=== PATIENT | male | born 1965 | race Caucasian/White ===

== ENCOUNTER 2017-01-08 11:09 | Emergency (ER) | payer OTHER, BC ==
[2017-01-08 11:13] VITALS: BP 139/91; PULSE 78; TEMP 98.4; BMI 33.9
[2017-01-08] MEDS ORDERED: IBUPROFEN 400 MG TABLET (FP) PO ONE ×2 (11:34→11:36)
--- NOTE | 2017-01-08 11:40 | PDOC ---
History of Present Illness - General Chief Complaint: Bite Stated Complaint: BEE STING Time Seen by Provider: 01/08/17 11:21 History Source: Patient Exam Limitations: No Limitations - History of Present Illness Initial Comments: 01/08/17 11:35 [employer] stung by bee today; left wrist Timing/Duration: reports: just prior to arrival Severity: Yes: mild Location: reports: extremities Respiratory Risk Factors: reports: insect bite Past History - Past Medical History Allergies/Adverse Reactions: Allergies Allergy/AdvReac Type Severity Reaction Status Date / Time honey Allergy Severe CYANOSIS Verified 01/08/17 11:13 TO LIPS, FINGER venom-honey bee Allergy Intermediate ITCHY Verified 01/08/17 11:13 [bee venom (honey bee)] EYES, WHEEZING Home Medications: Ambulatory Orders Mesalamine [Asacol HD -] 800 mg PO TID 11/18/13 GI Disorders: Yes (CROHNS DISEASE) - Surgical History Abdominal Surgery: Yes (HERNIA) GI Surgery: Yes (RECTUM) - Psycho/Social/Smoking Cessation Hx Anxiety: No Suicidal Ideation: No Smoking Status: No Smoking History: Never smoked Number of Cigarettes Smoked Daily: 0 Hx Alcohol Use: No Drug/Substance Use Hx: No Substance Use Type: None Review of Systems - Review of Systems Constitutional: No: Chills, Fever HEENTM: No: Nose Congestion, Tinnitus, Throat Swelling, Difficulty Swallowing, Mouth Swelling Respiratory: No: Cough, Shortness of Breath, Stridor Cardiac (ROS): No: Symptoms Reported Integumentary: Yes: Erythema *Physical Exam - Vital Signs Last Vital Signs Temp Pulse Resp BP Pulse Ox 98.4 F 78 20 139/91 95 01/08/17 11:10 01/08/17 11:10 01/08/17 11:10 01/08/17 11:10 01/08/17 11:10 - Physical Exam General Appearance: Yes: Appropriately Dressed HEENT: positive: TMs Normal, Pharynx Normal, Other (mouth clear) Neck: negative: Tender, Stridor Respiratory/Chest: positive: Lungs Clear, Normal Breath Sounds. negative: Respiratory Distress, Decreased Breath Sounds, Rhonchi, Wheezing Musculoskeletal: positive: Other (dorsal surface; small red patch; no stinger) Medical Decision Making - Medical Decision Making 01/08/17 11:37 no angioedema; motrin given for headache; benadryl for itch and redness *DC/Admit/Observation/Transfer Diagnosis at time of Disposition: Bee sting Qualifiers: Encounter type: initial encounter Injury intent: undetermined intent Qualified Code(s): T63.444A - Toxic effect of venom of bees, undetermined, initial encounter - Discharge Dispostion Disposition: HOME Condition at time of disposition: Stable Admit: No - Patient Instructions Additional Instructions: benadryl for itch; 50 mg; ice area; no driving after Benadryl - Post Discharge Activity Work/School Note: Back to Work
== END 2017-01-08 11:49 | disposition home or self-care (01) ==
LOC: JERFT 11:09
PROC: 3E023GC Introduction of Other Therapeutic Substance into Muscle, Percutaneous Approach (ICD-10-PCS; principal; 2017-01-08)
DX: T63.441A Toxic effect of venom of bees, accidental (unintentional), initial encounter (principal); L53.0 Toxic erythema; Y92.89 Other specified places as the place of occurrence of the external cause
CPT/HCPCS: 99281-25

== ENCOUNTER 2017-02-07 09:15 | Emergency (ER) | payer BC, OTHER ==
[2017-02-07 09:22] VITALS: PULSE 67; TEMP 98.1; BMI 33.9
--- NOTE | 2017-02-07 10:36 | PDOC ---
History of Present Illness - General Chief Complaint: Pain Stated Complaint: ABD PAIN Time Seen by Provider: 02/07/17 09:37 History Source: Patient Exam Limitations: No Limitations - History of Present Illness Travel History: No Initial Comments: 02/07/17 10:33 51-year-old male presents to the ED with complaints of sudden onset of periumbilical pain while lifting a heavy item at work. Patient states felt a sharp burning sensation and states abdomen felt they but denies radiation of pain to his back, chest or lower abdomen. Patient states has had a hernia repaired to his left inguinal in the past and denies any abdominal surgery otherwise. Patient has no other complaints at this time. Timing/Duration: reports: constant Quality: reports: moderate, burning, sharpness Abdominal Pain Onset Location: reports: periumbilical Pain Radiation: reports: no radiation Activities at Onset: reports: none Aggravating Factors: improves with: Movement Alleviating Factors: improves with: None Past History - Travel Traveled outside of the country in the last 30 days: No Close contact w/someone who was outside of country & ill: No - Past Medical History Allergies/Adverse Reactions: Allergies Allergy/AdvReac Type Severity Reaction Status Date / Time honey Allergy Severe CYANOSIS Verified 02/07/17 09:19 TO LIPS, FINGER venom-honey bee Allergy Intermediate ITCHY Verified 02/07/17 09:19 [bee venom (honey bee)] EYES, WHEEZING Home Medications: Ambulatory Orders Mesalamine [Asacol HD -] 800 mg PO DAILY 11/18/13 Ranitidine HCl [Zantac] 150 mg PO BID 02/07/17 GI Disorders: Yes (CROHNS DISEASE) - Surgical History Abdominal Surgery: Yes (HERNIA) GI Surgery: Yes (RECTUM) - Suicide/Smoking/Psychosocial Hx Smoking Status: No Smoking History: Never smoked Number of Cigarettes Smoked Daily: 0 Information on smoking cessation initiated: No Hx Alcohol Use: No Drug/Substance Use Hx: No Substance Use Type: None Patient Lives Alone: No Lives with/in: spouse/SO Review of Systems - Review of Systems Able to Perform ROS?: No Is the patient limited Frisian proficient: No Constitutional: No: Symptoms Reported ABD/GI: Yes: Abdominal Distended, Other : No: Symptoms Reported Musculoskeletal: No: Symptoms Reported Integumentary: No: Symptoms Reported Neurological: No: Symptoms reported *Physical Exam - Vital Signs Last Vital Signs Temp Pulse Resp BP Pulse Ox 98.1 F 67 18 154/94 100 02/07/17 09:19 02/07/17 09:19 02/07/17 09:19 02/07/17 09:19 02/07/17 09:19 - Physical Exam General Appearance: Yes: Nourished, Appropriately Dressed. No: Apparent Distress HEENT: negative: Pale Conjunctivae Respiratory/Chest: positive: Lungs Clear, Normal Breath Sounds. negative: Respiratory Distress, Accessory Muscle Use Cardiovascular: positive: Regular Rhythm, Regular Rate. negative: Murmur Gastrointestinal/Abdominal: positive: Soft, Tenderness (periumbilical), Hernia ( small 1-2 cm reducible umbilical hernia. no signs of incarceration. Surrounding skin intact) Integumentary: positive: Normal Color, Warm, Moist Neurologic: positive: Motor Strength 5/5 ( ambulatory) ED Treatment Course - LABORATORY CBC & Chemistry Diagram: 02/07/17 10:26 02/07/17 10:26 Medical Decision Making - Medical Decision Making 02/07/17 10:36 Patient with complaints of periumbilical pain after lifting an item. Patient with small reproducible umbilical hernia. Patient ordered for CT of the abdomen for accurate size and depth. Patient otherwise comfortable. 02/07/17 11:38 Laboratory Tests 02/07/17 02/07/17 10:26 10:26 WBC 8.5 Hgb 15.2 Hct 44.4 Plt Count 145 Sodium 140 Potassium 3.6 Chloride 105 Carbon Dioxide 28 Anion Gap 7 L BUN 14 Creatinine 1.0 Creat Clearance w eGFR > 60 Random Glucose 88 D Calcium 8.5 Total Bilirubin 0.9 AST 23 D ALT 26 D Alkaline Phosphatase 69 Total Protein 7.0 Albumin 3.8 02/07/17 14:33 CT shows a small fat-containing umbilical hernia with mild fat stranding within this hernia sac which may be related to attempts of reduction rather than fat necrosis. He also small bilateral fat-containing inguinal hernias right greater than left despite having left inguinal hernia repair in the past. Patient given referral to Dr. Robles for surgical consult. *DC/Admit/Observation/Transfer Diagnosis at time of Disposition: Umbilical hernia Qualifiers: Obstruction and gangrene presence: without obstruction or gangrene Qualified Code(s): K42.9 - Umbilical hernia without obstruction or gangrene; K42.9 - Umbilical hernia without obstruction or gangrene - Discharge Dispostion Disposition: HOME Condition at time of disposition: Good - Referrals Referrals: Reese Robles MD [Staff Physician] - - Patient Instructions Printed Discharge Instructions: Abdominal Hernia Additional Instructions: Please follow-up with referred surgeon as discussed. Please take copy of your CAT scan report with you.
[2017-02-07 10:40] LABS: BASOPHIL 0.3 % (0-2.0); EOSINOPHIL 1.3 % (0-4.5); MCH 28.6 pg (25.7-33.7); MCHC 34.3 g/dl (32.0-35.9); MEAN CELL VOLUME 83.4 fl (80-96); MEAN PLT VOLUME 7.7 fl (7.5-11.1); NEUTROPHILS 71.2 % (42.8-82.8); PLATELET COUNT 145 K/MM3 (134-434); RDW 13.7 % (11.9-15.9); WHITE BLOOD COUNT 8.5 K/mm3 (4.0-10.0)
[2017-02-07 11:04] LABS: ALBUMIN 3.8 g/dl (3.4-5.0); ALK PHOS 69 U/L (45-117); ANION GAP 7 (8-16); BILIRUBIN,TOTAL 0.9 mg/dL (0.2-1.0); CALCIUM 8.5 mg/dL (8.5-10.1); CO2 28 mmol/L (21-32); GLUCOSE,RANDOM 88 mg/dL (74-106); SGOT/AST 23 U/L (15-37); SGPT/ALT 26 U/L (12-78)
[2017-02-07 15:20] VITALS: BP 150/72
== END 2017-02-07 15:00 | disposition home or self-care (01) ==
LOC: JER 09:15
DX: K42.9 Umbilical hernia without obstruction or gangrene (principal); K50.90 Crohn's disease, unspecified, without complications
CPT/HCPCS: 36415; 74177-TC; 80053; 85025; 99283-25

== ENCOUNTER 2018-04-14 09:01 | Emergency (ER) | payer OTHER, BC ==
[2018-04-14 09:26] VITALS: BP 122/91; PULSE 74; TEMP 97.8; BMI 33.9
--- NOTE | 2018-04-14 11:04 | PDOC ---
History of Present Illness - General Chief Complaint: Injury Stated Complaint: PAIN,SWELLING,RT FT Time Seen by Provider: 04/14/18 09:41 History Source: Patient Exam Limitations: No Limitations - History of Present Illness Initial Comments: 04/14/18 11:17 Pt is a 52 y/o M who presents to the ED with R foot pain. Pt states he stepped on a very sharp rock while at work last week. He states that the ball of his foot is swollen and it hurts to put weight on the foot. Denies numbness and tingling to the extremities, weakness to the foot, fever. Past History - Travel Traveled outside of the country in the last 30 days: No Close contact w/someone who was outside of country & ill: No - Past Medical History Allergies/Adverse Reactions: Allergies Allergy/AdvReac Type Severity Reaction Status Date / Time honey Allergy Severe CYANOSIS Verified 04/14/18 09:20 TO LIPS, FINGER venom-honey bee Allergy Intermediate ITCHY Verified 04/14/18 09:20 [bee venom (honey bee)] EYES, WHEEZING Home Medications: Ambulatory Orders Mesalamine [Asacol HD -] 800 mg PO DAILY 11/18/13 Ranitidine HCl [Zantac] 150 mg PO BID 02/07/17 Acetaminophen [Tylenol -] 500 mg PO Q6H #100 tablet 04/14/18 COPD: No GI Disorders: Yes (CROHNS DISEASE) - Surgical History Abdominal Surgery: Yes (HERNIA) GI Surgery: Yes (RECTUM) - Suicide/Smoking/Psychosocial Hx Smoking Status: No Smoking History: Never smoked Number of Cigarettes Smoked Daily: 0 Hx Alcohol Use: No Drug/Substance Use Hx: No Substance Use Type: None Review of Systems - Review of Systems Able to Perform ROS?: Yes Comments:: 04/14/18 11:02 CONSTITUTIONAL: Absent: fever, chills, diaphoresis, generalized weakness, malaise, loss of appetite HEENT: Absent: rhinorrhea, nasal congestion, throat pain, throat swelling, difficulty swallowing, mouth swelling, ear pain, eye pain, visual Changes CARDIOVASCULAR: Absent: chest pain, loss of consciousness, palpitations, irregular heart rate, peripheral edema RESPIRATORY: Absent: cough, shortness of breath, dyspnea with exertion, orthopnea, wheezing, stridor, hemoptysis GASTROINTESTINAL: Absent: abdominal pain, abdominal distension, nausea, vomiting, diarrhea, constipation, melena, hematochezia GENITOURINARY: Absent: dysuria, frequency, urgency, hesitancy, hematuria, flank pain, genital pain MUSCULOSKELETAL: Present: R foot pain Absent: myalgia, arthralgia, joint swelling SKIN: Absent: rash, itching, pallor HEMATOLOGIC/IMMUNOLOGIC: Absent: easy bleeding, easy bruising, lymphadenopathy, frequent infections ENDOCRINE: Absent: unexplained weight gain, unexplained weight loss, heat intolerance, cold intolerance NEUROLOGIC: Absent: headache, focal weakness or paresthesias, dizziness, unsteady gait, seizure, mental status changes, bladder or bowel incontinence PSYCHIATRIC: Absent: anxiety, depression, suicidal or homicidal ideation, hallucinations. Is the patient limited Upper Sorbian proficient: No *Physical Exam - Vital Signs Last Vital Signs Temp Pulse Resp BP Pulse Ox 97.8 F 74 18 122/91 98 04/14/18 09:10 04/14/18 09:10 04/14/18 09:10 04/14/18 09:10 04/14/18 09:10 - Physical Exam Comments: 04/14/18 11:02 GENERAL: The patient is awake, alert, and fully oriented, in no acute distress. HEAD: Normal with no signs of trauma. EYES: Pupils equal, round and reactive to light, extraocular movements intact, sclera anicteric, conjunctiva clear. EXTREMITIES: TTP of the head of the first metatarsal with mild swelling. Strength of the feet 5/5 b/l. Normal range of motion of all joints. NEUROLOGICAL: Normal speech, normal gait. PSYCH: Normal mood, normal affect. SKIN: Warm, Dry, normal turgor, no rashes or lesions noted. Moderate Sedation - Procedure Monitoring Vital Signs: Procedure Monitoring Vital Signs Temperature 97.8 F 04/14/18 09:10 Pulse Rate 74 04/14/18 09:10 Respiratory Rate 18 04/14/18 09:10 Blood Pressure 122/91 04/14/18 09:10 O2 Sat by Pulse Oximetry (%) 98 04/14/18 09:10 ED Treatment Course - RADIOLOGY Radiology Studies Ordered: Category Date Time Status FOOT-RIGHT [RAD] Stat Radiology 04/14/18 09:48 Taken Medical Decision Making - Medical Decision Making 04/14/18 11:20 Pt is a 52 y/o M who presents to the ED with R foot pain for one week after stepping on a sharp rock -Wet read of R foot X-ray is negative for fracture. Tendons intact -Pratik wrap applied to the foot to help with swelling -Possible bone bruise -DC home with pain control and symptomatic treatment. Podiatry follow up given -I discussed the physical exam findings, ancillary test results and final diagnoses with the patient. I answered all of the patient's questions. The patient was satisfied with the care received and felt comfortable with the discharge plan and treatment plan. The Patient agrees to follow up with the primary care physician/specialist within 24-72 hours. Return precautions were given. *DC/Admit/Observation/Transfer Diagnosis at time of Disposition: Foot pain, right - Discharge Dispostion Disposition: HOME Condition at time of disposition: Stable Decision to Admit order: No - Prescriptions Prescriptions: Acetaminophen [Tylenol -] 500 mg PO Q6H #100 tablet - Referrals Referrals: Aquilino Galeana MD [Staff Physician] - - Patient Instructions Printed Discharge Instructions: DI for Foot Pain Additional Instructions: Your x-rays are negative for fractures or broken bones. Please wear the Pratik wrap on her foot to help reduce swelling. He may take Motrin 800 mg every 8 hours to help with the pain. When resting please keep her foot elevated. Please follow up with podiatry this week if her symptoms are not improving. A referral has been provided. Return to the ER for any new or worsening symptoms. - Post Discharge Activity Forms/Work/School Notes: Back to Work
== END 2018-04-14 11:08 | disposition home or self-care (01) ==
LOC: JERFT 09:01
DX: M79.671 Pain in right foot (principal); W22.8XXA Striking against or struck by other objects, initial encounter; Y93.89 Activity, other specified; Y92.89 Other specified places as the place of occurrence of the external cause; Y99.0 Civilian activity done for income or pay
CPT/HCPCS: 73630-TC-RT-FY; 99281-25

== ENCOUNTER 2018-08-25 10:18 | Emergency (ER) | payer OTHER, BC ==
[2018-08-25 10:26] VITALS: BP 158/91; PULSE 68; TEMP 98.5; BMI 34.5
--- NOTE | 2018-08-25 11:30 | PDOC ---
History of Present Illness - General Chief Complaint: Injury Stated Complaint: INJURY Time Seen by Provider: 08/25/18 11:25 - History of Present Illness Initial Comments: 08/25/18 11:28 52-year-old male with a past medical history significant for hypertension presents for evaluation of left heel pain 4 days. He states he banged it on the back of the machine at work. He points to the posterior aspect of the left foot in the area of the calcaneus and Achilles. Past History - Past Medical History Allergies/Adverse Reactions: Allergies Allergy/AdvReac Type Severity Reaction Status Date / Time honey Allergy Severe CYANOSIS Verified 08/25/18 10:26 TO LIPS, FINGER venom-honey bee Allergy Intermediate ITCHY Verified 08/25/18 10:26 [bee venom (honey bee)] EYES, WHEEZING Home Medications: Ambulatory Orders Unobtainable 08/25/18 COPD: No GI Disorders: Yes (CROHNS DISEASE) HTN: Yes - Surgical History Abdominal Surgery: Yes (HERNIA) GI Surgery: Yes (RECTUM) - Suicide/Smoking/Psychosocial Hx Smoking Status: No Smoking History: Never smoked Number of Cigarettes Smoked Daily: 0 Hx Alcohol Use: No Drug/Substance Use Hx: No Substance Use Type: None Review of Systems - Review of Systems Musculoskeletal: Yes: See HPI *Physical Exam - Vital Signs Last Vital Signs Temp Pulse Resp BP Pulse Ox 98.5 F 68 16 158/91 96 08/25/18 10:23 08/25/18 10:23 08/25/18 10:23 08/25/18 10:23 08/25/18 10:23 - Physical Exam Comments: 08/25/18 11:29 Left foot and ankle skin color and temperature are normal. There is full range of motion of the knee and ankle with mild discomfort at the posterior aspect of the ankle in the area of the Achilles and calcaneus. There is no tenderness about the knee proximal fibula or along its distal coarse no tenderness about the medial lateral malleolus base of the fifth metatarsal or navicular. There is a negative Rosado's test mild tenderness about the retrocalcaneal area Achilles is intact without palpable deformity. No gross sensorimotor deficits or instability neurovascularly intact. ED Treatment Course - RADIOLOGY Radiology Studies Ordered: Category Date Time Status FOOT-LEFT [RAD] Stat Radiology 08/25/18 11:28 Ordered Medical Decision Making - Medical Decision Making 08/25/18 11:57 X-rays today in the emergency room show no evidence of fracture trauma destructive process there are calcaneal spurs. This is a retrocalcaneal contusion weight-bear as tolerated with crutches follow-up with orthopedic surgery. *DC/Admit/Observation/Transfer Diagnosis at time of Disposition: Contusion of left heel - Discharge Dispostion Disposition: HOME Condition at time of disposition: Stable Decision to Admit order: No - Referrals Referrals: Pipo Downs MD [Primary Care Provider] - Yosvany Bobo DO [Staff Physician] - - Patient Instructions Printed Discharge Instructions: Contusion, DI for Contusion Additional Instructions: Return to the emergency room for worsening symptoms. He may weight-bear as tolerated with use of crutches. Follow-up with orthopedic surgery in 1-2 days for further evaluation and treatment options. Tylenol as directed for pain. - Post Discharge Activity
== END 2018-08-25 12:10 | disposition home or self-care (01) ==
LOC: JERFT 10:18
DX: S90.32XA Contusion of left foot, initial encounter (principal); W31.89XA Contact with other specified machinery, initial encounter; Y93.89 Activity, other specified; Y92.69 Other specified industrial and construction area as the place of occurrence of the external cause; Y99.0 Civilian activity done for income or pay; I10 Essential (primary) hypertension
CPT/HCPCS: 73630-TC-LT; 99281-25

== ENCOUNTER 2019-05-19 20:39 | Inpatient (IN) | payer BC, OTHER ==
[2019-05-19 20:47] VITALS: BMI 33.9
[2019-05-19] MEDS ORDERED: dilTIAZem HCL 50 MG/10 ML - 10 ML VIAL IVPUSH ONE ×2 (21:18→23:24)
[2019-05-19 21:49] LABS: BASO % 0.4 % (0-2.0); EOS % 3.2 % (0-4.5); HEMATOCRIT 49.5 % (35.4-49); HEMOGLOBIN 16.8 GM/dl (11.7-16.9); LYMPH % 26.8 % (8-40); MEAN CELL VOLUME 85.2 fl (80-96); MEAN PLT VOLUME 7.7 fl (7.5-11.1); MONO % 8.5 % (3.8-10.2); NEUT % 61.1 % (42.8-82.8); PLATELET COUNT 192 K/MM3 (134-434); RBC 5.81 M/mm3 (4.00-5.60); RDW 12.7 % (11.9-15.9); WHITE BLOOD COUNT 8.3 K/mm3 (4.0-10.8)
[2019-05-19] MEDS ORDERED: dilTIAZem HCL 50 MG/10 ML - 10 ML VIAL ONE (21:50)
[2019-05-19 21:53] LABS: INR 1.07 (0.82-1.09)
[2019-05-19 22:02] LABS: ALBUMIN 4.2 g/dl (3.4-5.0); BILIRUBIN,TOTAL 1.5 mg/dl (0.2-1); CALCIUM 9.3 mg/dl (8.5-10); CREATININE 1.1 mg/dl (0.55-1.3); POTASSIUM 3.7 mmol/L (3.5-5.1); TOT PROT 7.5 g/dl (6.4-8.2)
--- NOTE | 2019-05-19 22:12 | PDOC ---
*Physical Exam - Vital Signs Last Vital Signs Temp Pulse Resp BP Pulse Ox 98.1 F 85 14 147/90 100 05/19/19 20:45 05/19/19 20:45 05/19/19 20:45 05/19/19 20:45 05/19/19 20:45 ED Treatment Course - LABORATORY CBC & Chemistry Diagram: 05/19/19 21:30 05/19/19 21:30 - ADDITIONAL ORDERS Additional order review: Laboratory Results 05/19/19 05/19/19 05/19/19 21:30 21:30 21:13 PT with INR 12.0 INR 1.07 Sodium 140 Potassium 3.7 Chloride 102 Carbon Dioxide 30 Anion Gap 8 BUN 13.0 Creatinine 1.1 Est GFR (CKD-EPI)AfAm 87.13 Est GFR (CKD-EPI)NonAf 75.17 Random Glucose 91 Calcium 9.3 Total Bilirubin 1.5 H AST 23 ALT 24 Alkaline Phosphatase 63 Creatine Kinase 126 Troponin I < 0.03 Total Protein 7.5 Albumin 4.2 05/19/19 21:30 RBC 5.81 H MCV 85.2 MCHC 34.0 RDW 12.7 MPV 7.7 Neutrophils % 61.1 Lymphocytes % 26.8 Monocytes % 8.5 Eosinophils % 3.2 Basophils % 0.4 - Medications Given in the ED: ED Medications Discontinued Medications Generic Name Dose Route Start Last Admin Trade Name Freq PRN Reason Stop Dose Admin Diltiazem HCl 10 mg 05/19/19 21:18 05/19/19 21:18 Cardizem Injection - IVPUSH 05/19/19 21:19 10 mg ONCE ONE Administration ED Progress Note - Progress Note Progress Note: Care of this patient received from Dr. Villalpando. Patient presents from Dr. Downs's office with apparent new onset atrial fibrillation with rapid ventricular response. Patient received diltiazem 10 mg IV with decrease in ventricular response to 100 105/minute initially but within approximately 30 minutes resumption of heart rate to 120-130/minute. Meanwhile, laboratory evaluation had been performed and was essentially normal with no elevation of troponin, normal CBC and no evidence of electrolyte abnormality, renal insufficiency or abnormality in LFTs. Patient continued to be comfortable without chest pain, shortness of breath or palpitations. There was no hypotension noted after administration of 10 mg diltiazem IV Second dose of diltiazem 20 mg IV given. Patient had prompt decrease in heart rate to 7080/min and no subsequent hypotension Results of work-up discussed with the patient. He agrees to admission for further monitoring, evaluation and treatment of his new onset atrial fibrillation Case discussed with QUIQUE Peters. Patient admitted to telemetry, Discharge - Discharge Information Problems reviewed: Yes Clinical Impression/Diagnosis: New onset atrial fibrillation Condition: Stable - Admission Yes - Follow up/Referral - Patient Discharge Instructions - Post Discharge Activity
[2019-05-19] MEDS ORDERED: ACETAMINOPHEN 325 MG TABLET (FP) ONE (23:34)
[2019-05-19] MEDS ORDERED: ACETAMINOPHEN 325 MG TABLET (FP) PO ONE (23:35)
--- NOTE | 2019-05-20 00:22 | HP ---
CHIEF COMPLAINT: Referred to ED by Dr. Downs PCP: Dr. Downs HISTORY OF PRESENT ILLNESS: The patient is a 53-year-old male with a past medical history significant for HTN, asthma, and Crohn's disease (not on medication) was sent to the emergency department by Dr. Downs for abnormal EKG. The patient reports he was unable to go to work yesterday secondary to a Crohn's flare-up and went to see his PCP for a work note. An ECG was done and showed afib with RVR @135 bpm. Patient states he has had epidodes of palpitations and rapid heart rate for two years. He sometimes becomes SOB and has dyspnea on exertion. He recalls having a cardiac workup about 18 months ago and put on medication which was later stopped. ER course was notable for: (1) Troponin neg x 1 (2) HR 140 Recent Travel: No PAST MEDICAL HISTORY: Hypertension Asthma Crohn's disease PAST SURGICAL HISTORY: Hernia repair Rectal surgery Right knee surgery Left wrist surgery Family history: half brother: stent placement (1 year ago); otherwise, denies known family history of strokes or MIs Social History: Works for [employer], Smoking: never Alcohol: no Drugs: no Allergies honey Allergy (Severe, Verified 08/25/18 10:26) CYANOSIS TO LIPS, FINGER venom-honey bee [bee venom (honey bee)] Allergy (Intermediate, Verified 10:26) ITCHY EYES, WHEEZING HOME MEDICATIONS: Home Medications Medication Instructions Recorded Metoprolol Succinate [Toprol Xl] 25 mg PO DAILY 05/19/19 REVIEW OF SYSTEMS CONSTITUTIONAL: Absent: fever, chills, diaphoresis, generalized weakness, malaise, loss of appetite, weight change HEENT: Absent: rhinorrhea, nasal congestion, throat pain, throat swelling, difficulty swallowing, mouth swelling, ear pain, eye pain, visual changes CARDIOVASCULAR: +palpitations, rapid heart rate Absent: chest pain, syncope, irregular heart rate, lightheadedness, peripheral edema RESPIRATORY: Absent: cough, shortness of breath, dyspnea with exertion, orthopnea, wheezing, stridor, hemoptysis GASTROINTESTINAL: Absent: abdominal pain, abdominal distension, nausea, vomiting, diarrhea, constipation, melena, hematochezia GENITOURINARY: Absent: dysuria, frequency, urgency, hesitancy, hematuria, flank pain, genital pain MUSCULOSKELETAL: Absent: myalgia, arthralgia, joint swelling, back pain, neck pain SKIN: Absent: rash, itching, pallor HEMATOLOGIC/IMMUNOLOGIC: Absent: easy bleeding, easy bruising, lymphadenopathy, frequent infections ENDOCRINE: Absent: unexplained weight gain, unexplained weight loss, heat intolerance, cold intolerance NEUROLOGIC: Absent: headache, focal weakness or paresthesias, dizziness, unsteady gait, seizure, mental status changes, bladder or bowel incontinence PSYCHIATRIC: Absent: anxiety, depression, suicidal or homicidal ideation, hallucinations. PHYSICAL EXAMINATION Vital Signs - 24 hr 05/19/19 05/19/19 20:45 23:58 Temperature 98.1 F Pulse Rate 85 Pulse Rate [ 100 H Left Radial] Respiratory 14 14 Rate Blood Pressure 147/90 Blood Pressure 141/90 [Right Arm] O2 Sat by Pulse 100 95 Oximetry (%) GENERAL: Awake, alert, and fully oriented, in no acute distress. HEAD: Normal with no signs of trauma. EYES: Pupils equal, round and reactive to light, extraocular movements intact, sclera anicteric, conjunctiva clear. No lid lag. EARS, NOSE, THROAT: Ears normal, nares patent, oropharynx clear without exudates. Moist mucous membranes. NECK: Normal range of motion, supple without lymphadenopathy, JVD, or masses. LUNGS: Breath sounds equal, clear to auscultation bilaterally. No wheezes, and no crackles. No accessory muscle use. HEART: Irregular, S1, S2 ABDOMEN: Soft, nontender, not distended UPPER EXTREMITIES: 2+ pulses, warm, well-perfused. No cyanosis. No clubbing. No peripheral edema. LOWER EXTREMITIES: 2+ pulses, warm, well-perfused. No calf tenderness. No peripheral edema. NEUROLOGICAL: Cranial nerves II-XII intact. Normal speech. Laboratory Results - last 24 hr 05/19/19 05/19/19 05/19/19 21:13 21:30 21:30 WBC 8.3 RBC 5.81 H Hgb 16.8 Hct 49.5 H MCV 85.2 MCH 29.0 MCHC 34.0 RDW 12.7 Plt Count 192 MPV 7.7 Absolute Neuts (auto) 5.1 Neutrophils % 61.1 Lymphocytes % 26.8 Monocytes % 8.5 Eosinophils % 3.2 Basophils % 0.4 PT with INR INR Sodium 140 Potassium 3.7 Chloride 102 Carbon Dioxide 30 Anion Gap 8 BUN 13.0 Creatinine 1.1 Est GFR (CKD-EPI)AfAm 87.13 Est GFR (CKD-EPI)NonAf 75.17 Random Glucose 91 Calcium 9.3 Total Bilirubin 1.5 H AST 23 ALT 24 Alkaline Phosphatase 63 Creatine Kinase 126 Troponin I < 0.03 Total Protein 7.5 Albumin 4.2 05/19/19 21:30 WBC RBC Hgb Hct MCV MCH MCHC RDW Plt Count MPV Absolute Neuts (auto) Neutrophils % Lymphocytes % Monocytes % Eosinophils % Basophils % PT with INR 12.0 INR 1.07 Sodium Potassium Chloride Carbon Dioxide Anion Gap BUN Creatinine Est GFR (CKD-EPI)AfAm Est GFR (CKD-EPI)NonAf Random Glucose Calcium Total Bilirubin AST ALT Alkaline Phosphatase Creatine Kinase Troponin I Total Protein Albumin ASSESSMENT/PLAN 53-year-old male with a past medical history significant for HTN, asthma, and Crohn's disease (not on medication), admitted for afib with RVR. Atrial fibrillation with RVR --rate to 135 recorded in PCP's office, to 140 in ED, asymptomatic --has been on ToprolXL 25mg daily for HTN, continue --start cardizem 30mg q6h --[id number] 1: start ASA 81mg --telemetry monitoring --cardiology consult Hypertension --stable --continue ToprolXL Asthma --stable Crohn's disease --stable Visit type - Emergency Visit Emergency Visit: Yes ED Registration Date: 05/19/19 Care time: The patient presented to the Emergency Department on the above date and was hospitalized for further evaluation of their emergent condition. - New Patient This patient is new to me today: Yes Date on this admission: 05/29/19 - Critical Care Critical Care patient: No
[2019-05-20] MEDS ORDERED: ASPIRIN 81 MG CHEWABLE TABLETS PO STA (00:38)
[2019-05-20] MEDS: dilTIAZem HCL 30 MG TABLET (FP) PO SCH ×3 (01:59→12:22)
[2019-05-20] MEDS ORDERED: ACETAMINOPHEN 325 MG TABLET (FP) PO PRN (08:51)
[2019-05-20] MEDS ORDERED: ASPIRIN 81 MG CHEWABLE TABLETS PO SCH (10:00)
[2019-05-20] MEDS ORDERED: metoPROLOL SUCCINATE 25 MG TAB.SR.24H (FP) PO SCH (10:00)
[2019-05-20 10:19] LABS: N-TERMINAL BNP 393.8 pg/ml (5-125)
[2019-05-20 14:09] VITALS: BP 135/86; PULSE 67; TEMP 97.9
--- NOTE | 2019-05-20 14:17 | ECHO ---
Name: LONA ROBERTS Exam:Adult Echocardiogram Study Date: 05/20/2019 11:10 AM Age: 53 yrs Reason For Study: A-Felix W/ RVR Height: 72 in Weight: 251 lb BSA: 2.3 m2 MMode/2D Measurements & Calculations IVSd: 1.4 cm Ao root diam: 3.3 cm LVIDd: 4.1 cm LA dimension: 3.5 cm LVIDs: 3.0 cm LVPWd: 1.4 cm EDV(Teich): 72.6 ml LVOT diam: 2.4 cm ESV(Teich): 34.0 ml EDV(MOD-sp4): 126.0 ml Doppler Measurements & Calculations MV E max chiki: 63.3 cm/sec MV dec slope: 433.3 cm/sec2 Ao V2 max: 90.3 cm/sec LV V1 max P.5 mmHg Ao max P.3 mmHg LV V1 mean P.77 mmHg Ao V2 mean: 60.6 cm/sec LV V1 max: 60.0 cm/sec Ao mean P.7 mmHg LV V1 mean: 41.4 cm/sec Ao V2 VTI: 13.6 cm LV V1 VTI: 9.2 cm JUAN ANTONIO(I,D): 3.2 cm2 JUAN ANTONIO(V,D): 3.1 cm2 SV(LVOT): 43.0 ml TR max chiki: 147.9 cm/sec TR max P.4 mmHg RVSP(TR): 12.4 mmHg PA V2 max: 77.2 cm/sec RAP systole: 3.0 mmHg PA max P.4 mmHg Procedure A complete two-dimensional transthoracic echocardiogram was performed (2D, M-mode, Doppler and color flow Doppler). The study was technically difficult with many images being suboptimal in quality. The patie nt was in atrial fibrillation with rapid ventricular response during the exam with a heart rate exceeding 100 b pm. Left Ventricle The left ventricular size, thickness and function are normal. The left ventricular ejection fraction is normal. Ejection Fraction = 55-60%. Regional wall motion abnormalities cannot be excluded due to limi julio césar visualization. Right Ventricle The right ventricle is normal in size and function. Atria Normal left and right atrial size and function. Mitral Valve There is no mitral regurgitation noted. Tricuspid Valve There is trace tricuspid regurgitation. There was insufficient TR detected to calculate RV systolic p ressure. Aortic Valve No hemodynamically significant valvular aortic stenosis. No aortic regurgitation is present. Pulmonic Valve The pulmonic valve is not well visualized. Great Vessels The aortic root is normal size. Pericardium/Pleura There is no pericardial effusion. Interpretation Summary The study was technically difficult with many images being suboptimal in quality. The patient was in atrial fibrillation with rapid ventricular response during the exam. The left ventricular size, thickness and function are normal The right ventricle is normal in size and function. There is trace tricuspid regurgitation. MD Bryan Tidwell 05/20/2019 02:17 PM
--- NOTE | 2019-05-20 14:25 | CON.CARD ---
Consult Consult Specialty:: Cardiology Referred by:: Jax Reason for Consultation:: afib - History of Present Illness Chief Complaint: palps History of Present Illness: 53M h/o HTN, asthma, Crohn's dz, pAfib p/w afib with RVR. Went to PCP day prior to admission with Crohn's flare, noted to be in afib with RVR at 135 bpm, referred to ER. Had prior episode of Afib with RVR in 2016, saw Dr. Tidwell, was on metoprolol and aspirin, not sure when he stopped aspirin, has been on metoprolol for HTN. Has felt intermittent palps in last few years, not bothersome. In last few months has edema at the end of the day and sometimes gets short of breath when talking. No chest pain, dizziness, orthopnea, PND. - Alcohol/Substance Use Hx Alcohol Use: No - Smoking History Smoking history: Unknown if ever smoked Have you smoked in the past 12 months: No Aproximately how many cigarettes per day: 0 Home Medications - Allergies Allergies/Adverse Reactions: Allergies Allergy/AdvReac Type Severity Reaction Status Date / Time honey Allergy Severe CYANOSIS Verified 08/25/18 10:26 TO LIPS, FINGER venom-honey bee Allergy Intermediate ITCHY Verified 08/25/18 10:26 [bee venom (honey bee)] EYES, WHEEZING - Home Medications Home Medications: Ambulatory Orders Metoprolol Succinate [Toprol Xl] 25 mg PO DAILY 05/19/19 Family Medical History Family History: Unremarkable Review of Systems - Review of Systems Constitutional: reports: No Symptoms Eyes: reports: No Symptoms HENT: reports: No Symptoms Neck: reports: No Symptoms Cardiovascular: reports: No Symptoms Respiratory: reports: No Symptoms Gastrointestinal: reports: No Symptoms Genitourinary: reports: No Symptoms Musculoskeletal: reports: No Symptoms Integumentary: reports: No Symptoms Neurological: reports: No Symptoms Endocrine: reports: No Symptoms Hematology/Lymphatic: reports: No Symptoms Psychiatric: reports: No Symptoms Vital Signs: Vital Signs Temperature 97.9 F 05/20/19 14:07 Pulse Rate 67 05/20/19 14:07 Respiratory Rate 18 05/20/19 14:07 Blood Pressure 135/86 05/20/19 14:07 O2 Sat by Pulse Oximetry (%) 96 05/20/19 09:00 Constitutional: Yes: No Distress, Calm Eyes: Yes: Conjunctiva Clear, EOM Intact HENT: Yes: Atraumatic, Normocephalic Neck: Yes: Supple, Trachea Midline Respiratory: Yes: Regular, CTA Bilaterally Gastrointestinal: Yes: Normal Bowel Sounds, Soft Cardiovascular: Yes: Regular Rate and Rhythm JVD: No Heart Sounds: Yes: S1, S2 Extremities: No: Cold Edema: No Integumentary: No: Jaundice Neurological: Yes: Alert, Oriented Psychiatric: No: Agitated - Other Data Labs, Other Data: CBC, BMP 05/19/19 21:30 05/19/19 21:30 INR, PTT INR 1.07 (0.82-1.09) 05/19/19 21:30 Troponin, BNP 05/19/19 05/20/19 05/20/19 21:13 02:45 03:00 Troponin I < 0.03 < 0.02 Cancelled B-Natriuretic Peptide 05/20/19 05/20/19 06:53 09:05 Troponin I < 0.03 B-Natriuretic Peptide 393.8 H Troponin, BNP 05/19/19 05/20/19 05/20/19 21:13 02:45 03:00 Troponin I < 0.03 < 0.02 Cancelled B-Natriuretic Peptide 05/20/19 05/20/19 06:53 09:05 Troponin I < 0.03 B-Natriuretic Peptide 393.8 H Assessment/Plan EKG: afib with RVR, PVC, no ischemic changes echo 04/2019 tds, afib with rvr, nl LV/RV function tele: afib with RVR -> sinus paroxysmal afib - now in sinus - echo unremarkable - [id number] 1 - would continue aspirin 81 mg daily - cont metoprolol - change cardizem to 120 mg CD daily - stable for dc from cardiac perspective HTN - cont current meds Crohn's dz - manage per primary
--- NOTE | 2019-05-20 14:42 | DS ---
Physical Exam: SUBJECTIVE: Patient seen and examined OBJECTIVE: Vital Signs Period Temp Pulse Resp BP Sys/[place] Pulse Ox Last 24 Hr 97.3 F-98.1 F 67-102 14-20 135-151/80-95 95-100 PHYSICAL EXAM GENERAL: Awake, alert, and fully oriented, in no acute distress. LUNGS: Breath sounds equal, clear to auscultation bilaterally. No wheezes, and no crackles. No accessory muscle use. HEART: Irregular, S1, S2 ABDOMEN: Soft, nontender, not distended UPPER EXTREMITIES: 2+ pulses, warm, well-perfused. No cyanosis. No clubbing. No peripheral edema. LOWER EXTREMITIES: 2+ pulses, warm, well-perfused. No calf tenderness. No peripheral edema. NEUROLOGICAL: Cranial nerves II-XII intact. Normal speech. LABS Laboratory Results - last 24 hr 05/19/19 05/19/19 05/19/19 21:13 21:30 21:30 WBC 8.3 RBC 5.81 H Hgb 16.8 Hct 49.5 H MCV 85.2 MCH 29.0 MCHC 34.0 RDW 12.7 Plt Count 192 MPV 7.7 Absolute Neuts (auto) 5.1 Neutrophils % 61.1 Lymphocytes % 26.8 Monocytes % 8.5 Eosinophils % 3.2 Basophils % 0.4 PT with INR INR Sodium 140 Potassium 3.7 Chloride 102 Carbon Dioxide 30 Anion Gap 8 BUN 13.0 Creatinine 1.1 Est GFR (CKD-EPI)AfAm 87.13 Est GFR (CKD-EPI)NonAf 75.17 Random Glucose 91 Calcium 9.3 Total Bilirubin 1.5 H AST 23 ALT 24 Alkaline Phosphatase 63 Creatine Kinase 126 Troponin I < 0.03 B-Natriuretic Peptide Total Protein 7.5 Albumin 4.2 TSH 05/19/19 05/20/19 05/20/19 21:30 02:45 03:00 WBC RBC Hgb Hct MCV MCH MCHC RDW Plt Count MPV Absolute Neuts (auto) Neutrophils % Lymphocytes % Monocytes % Eosinophils % Basophils % PT with INR 12.0 INR 1.07 Sodium Potassium Chloride Carbon Dioxide Anion Gap BUN Creatinine Est GFR (CKD-EPI)AfAm Est GFR (CKD-EPI)NonAf Random Glucose Calcium Total Bilirubin AST ALT Alkaline Phosphatase Creatine Kinase Troponin I < 0.02 Cancelled B-Natriuretic Peptide Total Protein Albumin [facility] 05/20/19 05/20/19 06:53 09:05 WBC RBC Hgb Hct MCV MCH MCHC RDW Plt Count MPV Absolute Neuts (auto) Neutrophils % Lymphocytes % Monocytes % Eosinophils % Basophils % PT with INR INR Sodium Potassium Chloride Carbon Dioxide Anion Gap BUN Creatinine Est GFR (CKD-EPI)AfAm Est GFR (CKD-EPI)NonAf Random Glucose Calcium Total Bilirubin AST ALT Alkaline Phosphatase Creatine Kinase Troponin I < 0.03 B-Natriuretic Peptide 393.8 H Total Protein Albumin TSH 1.76 HOSPITAL COURSE: Date of Admission:05/19/19 Date of Discharge: 05/20/19 53-year-old male with a past medical history significant for HTN, asthma, and Crohn's disease (not on medication), admitted for afib with RVR. Atrial fibrillation with RVR --rate to 135 recorded in PCP's office, to 140 in ED, asymptomatic --had been on ToprolXL 25mg daily for HTN which was continued; diltiazem CD 120mg added --converted to sinus rhythm --[id number] 1: continue ASA 81mg Hypertension --stable --continued ToprolXL Asthma --stable Crohn's disease --stable Minutes to complete discharge: 35 Discharge Summary Problems reviewed: Yes Reason For Visit: NEW ONSET AFIB Current Active Problems New onset atrial fibrillation (Acute) Condition: Improved - Instructions Diet, Activity, Other Instructions: Three prescriptions have been sent to your pharmacy: metoprolol, diltiazem, and aspirin. Start taking these medications tomorrow morning. It is important you follow up with Dr. Downs, your primary care provider, and with Dr. Tidwell, your health physicist. Make appointments to see both of them within one week of your discharge. Return to the emergency department for any new or worsening symptoms. Referrals: Pipo Downs MD [Primary Care Provider] - 1 Week Bryan Tidwell MD [Staff Physician] - 1 Week Disposition: HOME - Home Medications Comprehensive Discharge Medication List: Ambulatory Orders Metoprolol Succinate [Toprol Xl] 25 mg PO DAILY 05/19/19 This patient is new to me today: Yes Date on this admission: 05/29/19 Emergency Visit: Yes ED Registration Date: 05/19/19 Care time: The patient presented to the Emergency Department on the above date and was hospitalized for further evaluation of their emergent condition. Critical Care patient: No - Discharge Referral Referred to [facility] No
--- NOTE | 2019-05-20 15:13 | EKG ---
Test Reason : Blood Pressure : / mmHG Vent. Rate : 140 BPM Atrial Rate : 150 BPM P-R Int : 000 ms QRS Dur : 092 ms QT Int : 322 ms P-R-T Axes : 000 040 007 degrees QTc Int : 491 ms ATRIAL FIBRILLATION WITH RAPID VENTRICULAR RESPONSE NONSPECIFIC ST ABNORMALITY ABNORMAL ECG WHEN COMPARED WITH ECG OF 06-OCT-2015 13:28, ATRIAL FIBRILLATION HAS REPLACED SINUS RHYTHM VENT. RATE HAS INCREASED BY 79 BPM INVERTED T WAVES HAVE REPLACED NONSPECIFIC T WAVE ABNORMALITY IN INFERIOR LEADS Confirmed by STEVE CAPONE MD ([id number]) on 05/20/2019 3:12:56 PM Referred By: MD FONTAINE Confirmed By:STEVE CAPONE MD
--- NOTE | 2019-05-20 15:13 | EKG ---
Test Reason : Blood Pressure : / mmHG Vent. Rate : 108 BPM Atrial Rate : 136 BPM P-R Int : 000 ms QRS Dur : 098 ms QT Int : 364 ms P-R-T Axes : 000 045 -26 degrees QTc Int : 487 ms ATRIAL FIBRILLATION WITH RAPID VENTRICULAR RESPONSE WITH PREMATURE VENTRICULAR OR ABERRANTLY CONDUCTED COMPLEXES CANNOT RULE OUT ANTERIOR INFARCT , AGE UNDETERMINED ABNORMAL ECG WHEN COMPARED WITH ECG OF 19-MAY-2019 21:08, NONSPECIFIC T WAVE ABNORMALITY NOW EVIDENT IN ANTERIOR LEADS Confirmed by STEVE CAPONE MD ([id number]) on 05/20/2019 3:13:01 PM Referred By: Confirmed By:STEVE CAPONE MD
--- NOTE | 2019-05-31 13:31 | PDOC ---
Documentation entered by Cookie Lynn SCRIBE, acting as scribe for Mick Tiwari MD. Mick Tiwari MD: This documentation has been prepared by the nnekaibeShane Lincy, SCRIBE, under my direction and personally reviewed by me in its entirety. I confirm that the documentation accurately reflects all work, treatment, procedures, and medical decision making performed by me. History of Present Illness - General Chief Complaint: Abnormal Lab Results (Outside) Stated Complaint: SENT BY PMD-IRREGULAR EKG Time Seen by Provider: 05/19/19 20:48 History Source: Patient Exam Limitations: No Limitations - History of Present Illness Initial Comments: 05/19/19 21:36 The patient is a 53-year-old male with a past medical history significant for HTN, asthma, and Crohn's disease (not on medication) was sent to the emergency department by Dr. Downs for abnormal EKG. The patient reports he was unable to go to work today, secondary to Crohn's flare-up. The patient reports he went to his PCP for a work note around 3:00 pm, where he had an EKG did, which was significant for "Afib with RVR 135/min" Denies chest pain or shortness of breath. Denies the history of Afib. The patient reports he has noticed episodes of his heart beating fast a couple of times for the past couple of years. Allergies: NKA Social history: Works for [employer], denies the use of tobacco, alcohol or recreational drugs. Surgical history: Hernia repair PCP: Dr. Downs. Family history: half brother: stent placement (1 year ago). Otherwise, denies known family history of strokes or MIs. Review of system: CONSTITUTIONAL: Absent: fever, chills, diaphoresis, generalized weakness, malaise, loss of appetite HEENT: Absent: rhinorrhea, nasal congestion, throat pain, throat swelling, difficulty swallowing, mouth swelling, ear pain, eye pain, visual Changes CARDIOVASCULAR: Absent: chest pain, syncope, palpitations, irregular heart rate, lightheadedness , peripheral edema RESPIRATORY: Absent: cough, shortness of breath, dyspnea with exertion, orthopnea, wheezing, stridor, hemoptysis GASTROINTESTINAL: Absent: abdominal pain, abdominal distension, nausea, vomiting, diarrhea, constipation, melena, hematochezia GENITOURINARY: Absent: dysuria, frequency, urgency, hesitancy, hematuria, flank pain, genital pain MUSCULOSKELETAL: Absent: myalgia, arthralgia, joint swelling SKIN: Absent: rash, itching, pallor HEMATOLOGIC/IMMUNOLOGIC: Absent: easy bleeding, easy bruising, lymphadenopathy, frequent infections ENDOCRINE: Absent: unexplained weight gain, unexplained weight loss, heat intolerance, cold intolerance NEUROLOGIC: Absent: headache, focal weakness or paresthesias, dizziness, unsteady gait, seizure, mental status changes, bladder or bowel incontinence PSYCHIATRIC: Absent: anxiety, depression, suicidal or homicidal ideation, hallucinations. Physical exam: GENERAL: Well developed, well nourished. Awake and alert. No acute distress. HEENT: Normocephalic, atraumatic. PERRLA, EOMI. No conjunctival pallor. Sclera are non- icteric. Moist mucous membranes. Oropharynx is clear. NECK: Supple. Full ROM. No JVD. No thyromegaly. No lymphadenopathy. CARDIOVASCULAR: +irregular irregular 140bpm, no murmurs, rubs, or gallops. PULMONARY: No evidence of respiratory distress. Lungs clear to auscultation bilaterally. No wheezing, rales or rhonchi. ABDOMINAL: Soft. Non-tender. Non-distended. No rebound or guarding. No organomegaly. Normoactive bowel sounds. MUSCULOSKELETAL Normal range of motion at all joints. No bony deformities or tenderness. EXTREMITIES: No cyanosis. No clubbing. No edema. No calf tenderness. SKIN: Warm and dry. Normal capillary refill. No rashes. No jaundice. NEUROLOGICAL: Alert, awake, appropriate. Cranial nerves 2-12 intact. PSYCHIATRIC: Cooperative. Good eye contact. Appropriate mood and affect. Past History - Past Medical History Allergies/Adverse Reactions: Allergies Allergy/AdvReac Type Severity Reaction Status Date / Time honey Allergy Severe CYANOSIS Verified 08/25/18 10:26 TO LIPS, FINGER venom-honey bee Allergy Intermediate ITCHY Verified 08/25/18 10:26 [bee venom (honey bee)] EYES, WHEEZING Home Medications: Ambulatory Orders Aspirin [ASA -] 81 mg PO DAILY #90 tab.chew 05/20/19 Diltiazem HCl [Diltiazem 24Hr ER] 120 mg PO DAILY #90 cap.sa.24h 05/20/19 Metoprolol Succinate [Toprol Xl] 25 mg PO DAILY #90 tab.er.24h 05/20/19 COPD: No GI Disorders: Yes (CROHNS DISEASE) HTN: Yes - Surgical History Abdominal Surgery: Yes (HERNIA) GI Surgery: Yes (RECTUM) - Psycho Social/Smoking Cessation Hx Smoking Status: No Smoking History: Unknown if ever smoked Have you smoked in the past 12 months: No Number of Cigarettes Smoked Daily: 0 Information on smoking cessation initiated: No Hx Alcohol Use: No Drug/Substance Use Hx: No Substance Use Type: None *Physical Exam - Vital Signs Last Vital Signs Temp Pulse Resp BP Pulse Ox 98.1 F 85 14 147/90 100 05/19/19 20:45 05/19/19 20:45 05/19/19 20:45 05/19/19 20:45 05/19/19 20:45 ED Treatment Course - LABORATORY CBC & Chemistry Diagram: 05/19/19 21:30 05/19/19 21:30 - RADIOLOGY Radiology Studies Ordered: Category Date Time Status CHEST X-RAY PORTABLE* [RAD] Stat Radiology 05/19/19 21:03 Ordered Medical Decision Making - Medical Decision Making 05/19/19 21:19 53-year-old man, history of hypertension, Crohn's disease, noted at routine office visit today to have a rapid irregular heart rate, EKG showed atrial fibrillation at a rate of 135. He was unaware of the rapid heart rate, but in the past has noted brief episodes of palpitations. A Holter monitor failed to show any arrhythmia. He is asymptomatic today, complaining of no chest pain, shortness of breath, nausea, diaphoresis, lightheadedness or dizziness. Vital signs are stable and physical exam is entirely normal except for rapid irregular heart rate of approximately 140/min. Cardizem administered. Observe. Signed out to Dr. Valle 10 PM pending further evaluation, decision for admission with cardiology consultation. Patient hemodynamically and clinically stable. Discharge - Discharge Information Problems reviewed: Yes Clinical Impression/Diagnosis: New onset atrial fibrillation - Admission Yes - Follow up/Referral - Patient Discharge Instructions - Post Discharge Activity
== END 2019-05-20 16:13 | disposition home or self-care (01) | DRG 310 ==
LOC: FER 20:39 → FM/S 23:59 → UNDOADMIN 05-20 00:14
PROVIDERS: ADMIT Internal Medicine; ATTEND Nurse Practitioner Acute Care
DX: I48.91 Unspecified atrial fibrillation (principal); I10 Essential (primary) hypertension
CPT/HCPCS: 36415; 71045-TC-FY; 80053; 82550; 83880; 84443; 84484; 85025; 85610; 93005; 93306-TC; 99285-25

== ENCOUNTER 2019-11-26 20:57 | Emergency (ER) | payer BC, OTHER ==
[2019-11-26 21:18] VITALS: BP 145/92; PULSE 69; TEMP 99; BMI 34.5
[2019-11-26 21:33] LABS: BASO % 0.7 % (0-2.0); HEMATOCRIT 42.9 % (35.4-49); LYMPH % 22.1 % (8-40); MCHC 35.1 g/dl (32.0-35.9); MEAN CELL VOLUME 82.7 fl (80-96); MEAN PLT VOLUME 7.3 fl (7.5-11.1); MONO % 7.2 % (3.8-10.2); PLATELET COUNT 176 K/MM3 (134-434); RBC 5.18 M/mm3 (4.00-5.60); RDW 12.9 % (11.9-15.9); WHITE BLOOD COUNT 8.8 K/mm3 (4.0-10.8)
[2019-11-26] MEDS ORDERED: POLYETHYLENE GLYCOL 3350 119 GM BTL PO ONE (21:50)
[2019-11-26] MEDS ORDERED: LACTULOSE 20 GM/30 ML UDC (FOR ORAL USE ONLY) PO ONE (21:50)
[2019-11-26 21:51] LABS: ALBUMIN 4.2 g/dl (3.4-5.0); BILIRUBIN,TOTAL 1.1 mg/dl (0.2-1); CALCIUM 8.6 mg/dl (8.5-10); CREATININE 1.2 mg/dl (0.55-1.3); POTASSIUM 3.3 mmol/L (3.5-5.1); TOT PROT 6.7 g/dl (6.4-8.2)
[2019-11-26] MEDS ORDERED: MAGNESIUM SULF 50% (8.12 MEQ/2 ML-1 GM VIAL) IVPB ONE (21:53)
[2019-11-26] MEDS ORDERED: POTASSIUM CHLORIDE TABS 20 MEQ TABLET.ER (FP) PO ONE ×2 (21:54→22:21)
[2019-11-26] MEDS ORDERED: LACTULOSE 20 GM/30 ML UDC (FOR ORAL USE ONLY) ONE (22:19)
[2019-11-26] MEDS ORDERED: MAGNESIUM 1GM/D5W - 1 GM/100 ML IVPB IVPB ONE (22:23)
[2019-11-26] MEDS ORDERED: MAGNESIUM SULF 50% (8.12 MEQ/2 ML-1 GM VIAL) ONE (22:23)
--- NOTE | 2019-11-26 22:24 | PDOC ---
Documentation entered by Ford Khalil SCRIBE, acting as scribe for Carlotta Martin MD. Carlotta Martin MD: This documentation has been prepared by the mileye, Ford Khalil SCRIBE, under my direction and personally reviewed by me in its entirety. I confirm that the documentation accurately reflects all work, treatment, procedures, and medical decision making performed by me. History of Present Illness - General Chief Complaint: Pain Stated Complaint: ABD PAIN Time Seen by Provider: 11/26/19 21:24 History Source: Patient Exam Limitations: No Limitations - History of Present Illness Initial Comments: 11/26/19 21:55 The patient is a 54 year old male with a significant past medical history of fatty liver, HTN, asthma, and Crohn's disease (not on medication), admitted (05/19-05/20) for afib with RVR (on metoprolol and baby aspirin) who presents to the ED with central abdominal pain that began two months ago. He notes this pain is worsened with straining and movement and is associated with lower back pain, bloating, and constipation secondary to poor diet. The patient endorses he has umbilical, lower left quadrant, and lower right quadrant hernias as of 02/06/2017. The patient endorses having intermittent chest palpitations for the past 18 months. The patient denies chest pain and shortness of breath. Denies fever, chills, nausea, vomiting, and/or any GI symptoms. Denies any symptoms. Denies any other symptoms. Allergies: honey, venom-honey bee Social Hx: None reported Surgical Hx: Hernia repair, rectal surgery, right knee surgery, left wrist surgery PCP: Dr. Downs Past History - Medical History Allergies/Adverse Reactions: Allergies Allergy/AdvReac Type Severity Reaction Status Date / Time honey Allergy Severe CYANOSIS Verified 11/26/19 20:58 TO LIPS, FINGER venom-honey bee Allergy Intermediate ITCHY Verified 11/26/19 20:58 [bee venom (honey bee)] EYES, WHEEZING Home Medications: Ambulatory Orders Aspirin [ASA -] 81 mg PO DAILY #90 tab.chew 05/20/19 Diltiazem HCl [Diltiazem 24Hr ER] 120 mg PO DAILY #90 cap.sa.24h 05/20/19 Metoprolol Succinate [Toprol Xl] 25 mg PO DAILY #90 tab.er.24h 05/20/19 Polyethylene Glycol 3350 [Miralax (For Daily Use) -] 17 gm PO ONCE #1 bottle 11/26/19 Asthma: Yes Cardiac Disorders: Yes (AFIB) COPD: No GI Disorders: Yes (CROHNS DISEASE) HTN: Yes - Surgical History Abdominal Surgery: Yes (HERNIA) GI Surgery: Yes (RECTUM) - Psycho-Social/Smoking History Smoking Status: No Smoking History: Never smoked Have you smoked in the past 12 months: No Number of Cigarettes Smoked Daily: 0 Information on smoking cessation initiated: No - Substance Abuse Hx (Audit-C & DAST Scrn) How often the patient has a drink containing alcohol: Never Score: In Men: 4 or > Positive; In Women: 3 or > Positive: 0 Screen Result (Pos requires Nsg. Audit-10AR): Negative In the last yr the pt used illegal drug/Rx for NonMed reason: No Score: Yes response is considered Positive: 0 Screen Result (Positive result requires Nsg. DAST-10): Negative Review of Systems - Review of Systems Comments:: 11/26/19 21:55 CONSTITUTIONAL: Absent: fever, no chills, no fatigue EYES: Absent: visual changes ENT: Absent: ear pain, no sore throat CARDIOVASCULAR:+palpitations Absent: chest pain RESPIRATORY: Absent: cough, no SOB GI: +abdominal pain, back pain, constipation Absent:, no nausea, no vomiting, no diarrhea GENITOURINARY: Absent: dysuria, no frequency, no hematuria MUSKULOSKELETAL: Absent: back pain, no arthralgia, no myalgia SKIN: Absent: rash NEURO: Absent: headache All Other Systems: Reviewed and Negative *Physical Exam - Vital Signs Last Vital Signs Temp Pulse Resp BP Pulse Ox 99 F 69 18 145/92 97 11/26/19 20:57 11/26/19 20:57 11/26/19 20:57 11/26/19 20:57 11/26/19 20:57 - Physical Exam 11/26/19 22:22 GENERAL: Well-appearing, well-nourished. No apparent distress. HEENT: Normocephalic, atraumatic. PERRL, EOM intact. CARDIOVASCULAR: Normal S1, S2. Regular rate and rhythm. PULMONARY: Clear to auscultation bilaterally. ABDOMEN: Soft, non-distended, non-tender. EXTREMITIES: Normal ROM in all four extremities. No gross deformities. SKIN: Warm, dry. No rash NEUROLOGICAL: No focal neurological deficits. ED Treatment Course - LABORATORY CBC & Chemistry Diagram: 11/26/19 21:20 11/26/19 21:17 Medical Decision Making - Medical Decision Making 11/26/19 22:02 Pt has normal labs; T bili is elevated because of fatty liver. Pt is awaiting XR abdomen flat and upright Pt has slightly low K+ and he will be repleted with mag and K+ Pt is getting hydration and he will be given lactulose and miralax 11/26/19 23:24 Labs normal abd normal pt feeling better we discussed the importance of diet change. Follow with PMD Discharge - Discharge Information Problems reviewed: Yes Clinical Impression/Diagnosis: Constipated Condition: Stable Disposition: HOME - Admission No - Additional Discharge Information Prescriptions: Polyethylene Glycol 3350 [Miralax (For Daily Use) -] 17 gm PO ONCE #1 bottle - Follow up/Referral Referrals: Pipo Downs MD [Primary Care Provider] - Reese Robles MD [Staff Physician] - - Patient Discharge Instructions Patient Printed Discharge Instructions: Eating a Diet Rich in Fruits and Vegetables - Post Discharge Activity Work/Back to School Note: Back to Work
[2019-11-26] MEDS ORDERED: ACETAMINOPHEN INJECTION 100 ML IVPB ONE (23:07)
== END 2019-11-26 23:12 | disposition home or self-care (01) ==
LOC: FER 20:57
PROC: 3E0333Z Introduction of Anti-inflammatory into Peripheral Vein, Percutaneous Approach (ICD-10-PCS; principal; 2019-11-26)
PROC: 3E033GC Introduction of Other Therapeutic Substance into Peripheral Vein, Percutaneous Approach (ICD-10-PCS; 2019-11-26)
DX: K59.00 Constipation, unspecified (principal)
CPT/HCPCS: 36415; 74019-TC-FY; 80053; 85025; 99284-25

== ENCOUNTER 2022-12-17 08:26 | Emergency (ER) | payer OTHER, BC ==
[2022-12-17 08:45] VITALS: BP 135/94; PULSE 99; RESP 20; TEMP 97.6; BMI 40.3
[2022-12-17] MEDS ORDERED: ACETAMINOPHEN 325 MG TABLET (FP) PO ONE (09:49)
[2022-12-17] MEDS ORDERED: ACETAMINOPHEN 325 MG TABLET (FP) ONE (10:34)
== END 2022-12-17 11:42 | disposition home or self-care (01) ==
LOC: JER 08:26 → JERFT 08:26
DX: S96.912A Strain of unspecified muscle and tendon at ankle and foot level, left foot, initial encounter (principal); M25.572 Pain in left ankle and joints of left foot; W17.2XXA Fall into hole, initial encounter; Y93.39 Activity, other involving climbing, rappelling and jumping off
CPT/HCPCS: 73610-TC-LT-FY; 73630-TC-LT; 99283-25

== ENCOUNTER 2023-02-11 08:06 | Emergency (ER) | payer BC ==
[2023-02-11 08:21] VITALS: BP 147/89; PULSE 62; RESP 16; TEMP 98.4; BMI 33.9
[2023-02-11] MEDS ORDERED: CYCLOBENZAPRINE HCL 10 MG TABLET (FP) PO ONE (08:38)
[2023-02-11] MEDS ORDERED: CYCLOBENZAPRINE HCL 5 MG TABLET ONE (08:50)
[2023-02-11 10:28] LABS: HEMATOCRIT 45.7 % (35.4-49); HEMOGLOBIN 15.6 G/dL (11.7-16.9); MCH 29.7 pg (25.7-33.7); MCHC 34.2 g/dl (32.0-35.9); MEAN CELL VOLUME 87.1 fl (80-96); MEAN PLT VOLUME 8.2 fl (7.5-11.1); PLATELET COUNT 134.3 10^3/uL (134-434); RBC 5.25 10^6/uL (4.00-5.60); RDW 14.8 % (11.9-15.9)
[2023-02-11 12:20] LABS: POTASSIUM 3.9 mmol/L (3.5-5.1)
[2023-02-11 12:24] LABS: ALBUMIN 3.6 g/dl (3.4-5.0)
[2023-02-11 12:25] LABS: MAGNESIUM 2.2 mg/dL (1.8-2.4)
[2023-02-11 12:29] LABS: BILIRUBIN,TOTAL 0.8 mg/dL (0.2-1); CREATININE 1.3 mg/dL (0.55-1.3); TOT PROT 6.8 g/dl (6.4-8.2)
== END 2023-02-11 12:59 | disposition home or self-care (01) ==
LOC: FER 08:06
DX: M54.50 Low back pain, unspecified (principal); H57.13 Ocular pain, bilateral; T50.905A Adverse effect of unspecified drugs, medicaments and biological substances, initial encounter
CPT/HCPCS: 36415; 80053; 83735; 85027; 99283-25

== ENCOUNTER 2023-02-28 12:15 | Emergency (ER) | payer BC, OTHER ==
[2023-02-28] MEDS ORDERED: LIDOCAINE 5% TOPICAL PATCH TP ONE (12:23)
[2023-02-28] MEDS ORDERED: ACETAMINOPHEN 500 MG TABLET (FP) PO ONE (12:23)
[2023-02-28] MEDS ORDERED: LIDOCAINE 5% TOPICAL PATCH ONE (12:31)
[2023-02-28] MEDS ORDERED: ACETAMINOPHEN 500 MG TABLET (FP) ONE (12:31)
[2023-02-28 12:59] VITALS: BP 141/92; PULSE 74; RESP 17; TEMP 98.5; BMI 33.9
[2023-02-28] MEDS ORDERED: LIDOCAINE PATCH REMOVAL MC ONE (22:00)
== END 2023-02-28 13:32 | disposition home or self-care (01) ==
LOC: FER 12:15
DX: M25.512 Pain in left shoulder (principal); X50.0XXA Overexertion from strenuous movement or load, initial encounter; Y99.0 Civilian activity done for income or pay
CPT/HCPCS: 73030-TC-LT-FY; 99283-25

== ENCOUNTER 2023-05-29 10:19 | Day surgery (SDC) | payer OTHER ==
[2023-05-22 14:37] VITALS: BMI 32.5
[2023-05-29] MEDS ORDERED: ROPIVACAINE HCL 0.5% 30ML VIAL ONE (12:40)
[2023-05-29] MEDS ORDERED: DEXAMETHASONE SOD PHOSPHATE/PF 10 MG/ML SDV ONE (12:40)
[2023-05-29] MEDS ORDERED: MIDAZOLAM HCL 2 MG/2 ML SINGLE DOSE VIAL ONE (12:40)
[2023-05-29] MEDS ORDERED: SUCCINYLCHOLINE CHLORIDE 200 MG/10 ML SYRINGE ONE (13:18)
[2023-05-29] MEDS ORDERED: ROCURONIUM BROMIDE 50 MG/5 ML SYRINGE ONE (13:30)
[2023-05-29] MEDS ORDERED: ePHEDrine SULFATE 50 MG/1 ML AMPULE ONE (14:05)
[2023-05-29] MEDS ORDERED: PROPOFOL 20 ML ONE (15:29)
[2023-05-29] MEDS ORDERED: ONDANSETRON 4 MG/2 ML VIAL IVPUSH PRN (17:06)
[2023-05-29] MEDS ORDERED: oxyCODONE HCL 5 MG TABLET PO PRN (17:06)
[2023-05-29] MEDS ORDERED: PROMETHAZINE HCL 25 MG/1 ML VIAL IVPB PRN (17:06)
[2023-05-29] MEDS ORDERED: LACTATED RINGERS SOLUTION 1,000 ML IV SCH (17:15)
[2023-05-29 18:28] VITALS: RESP 18
[2023-05-29] MEDS ORDERED: ACETAMINOPHEN 325 MG TABLET (FP) PO PRN (22:28)
[2023-05-30 09:56] VITALS: BP 155/80; PULSE 70; TEMP 98.2
== END 2023-05-30 13:15 | disposition home or self-care (01) ==
LOC: FASU 10:19 → FM/S 19:00 → FASU 05-30 13:15
PROVIDERS: ATTEND Orthopaedic Surgery Sports Medicine
PROC: 0LU24KZ Supplement Left Shoulder Tendon with Nonautologous Tissue Substitute, Percutaneous Endoscopic Approach (ICD-10-PCS; 2023-05-29)
PROC: 0LS44ZZ Reposition Left Upper Arm Tendon, Percutaneous Endoscopic Approach (ICD-10-PCS; principal; 2023-05-29 13:56)
PROC: 0RHK44Z Insertion of Internal Fixation Device into Left Shoulder Joint, Percutaneous Endoscopic Approach (ICD-10-PCS; 2023-05-29 13:56)
PROC: 0RNK4ZZ Release Left Shoulder Joint, Percutaneous Endoscopic Approach (ICD-10-PCS; 2023-05-29 13:56)
DX: M75.122 Complete rotator cuff tear or rupture of left shoulder, not specified as traumatic (principal); S43.432A Superior glenoid labrum lesion of left shoulder, initial encounter; X58.XXXA Exposure to other specified factors, initial encounter; Y93.9 Activity, unspecified; Y92.9 Unspecified place or not applicable; Y99.9 Unspecified external cause status
CPT/HCPCS: 29826; 29827; 29828; C1713; 93005; 94760; C1763; C1883; C1889

== ENCOUNTER 2024-03-04 07:04 | Day surgery (SDC) | payer OTHER ==
[2024-03-01 16:03] VITALS: BMI 33.9
[2024-03-04] MEDS ORDERED: PROPOFOL 20 ML ONE ×2 (08:24→10:47)
[2024-03-04] MEDS ORDERED: LIDOCAINE HCL/PF 2% SDV 5ML VIAL ONE (08:25)
[2024-03-04] MEDS ORDERED: MIDAZOLAM HCL 2 MG/2 ML SINGLE DOSE VIAL ONE (08:26)
[2024-03-04] MEDS ORDERED: ONDANSETRON 4 MG/2 ML VIAL IVPUSH PRN (08:40)
[2024-03-04] MEDS ORDERED: ROPIVACAINE HCL/PF 100 MG/20 ML VIAL ONE (08:52)
[2024-03-04] MEDS ORDERED: LIDOCAINE 1% P/F 10 MG/ML VIAL ONE (08:52)
[2024-03-04] MEDS ORDERED: ceFAZolin SODIUM 1 GM VIAL ONE (09:34)
[2024-03-04] MEDS ORDERED: EPINEPHrine 1:1,000 1,000 MCG/ML ML ONE (11:17)
[2024-03-04] MEDS ORDERED: ONDANSETRON 4 MG/2 ML VIAL ONE (11:41)
[2024-03-04] MEDS ORDERED: ACETAMINOPHEN INJECTION 100 ML ONE (13:03)
[2024-03-04] MEDS: ACETAMINOPHEN 1000 MG/100 ML BAG IVPB ONE (13:10)
[2024-03-04] MEDS ORDERED: METOPROLOL TARTRATE 5 MG/5 ML VIAL ONE ×2 (14:00→14:13)
[2024-03-04] MEDS: METOPROLOL TARTRATE 5 MG/5 ML VIAL IVPUSH ONE ×2 (14:01→14:20)
[2024-03-04] MEDS: LACTATED RINGERS SOLUTION 1,000 ML IV SCH (15:40)
[2024-03-04] MEDS: METOPROLOL TARTRATE 5 MG/5 ML VIAL IVPUSH SCH (15:41)
[2024-03-04] MEDS: CEFAZOLIN SODIUM 2 GM in DEXTROSE 5%-WATER 100 ML IVPB SCH (18:25)
[2024-03-04] MEDS: CEFAZOLIN SODIUM 2 GM in DEXTROSE 5%-WATER 50 ML IVPB SCH (18:34)
[2024-03-04] MEDS: CEFAZOLIN 2 GM/D5W 2 GM/50 ML ML IVPB SCH (18:35)
[2024-03-04] MEDS: oxyCODONE HCL 5 MG TABLET PO PRN (22:11)
[2024-03-05] MEDS: metoPROLOL SUCCINATE 25 MG TAB.SR.24H (FP) PO ONE (06:01)
[2024-03-05] MEDS: ASPIRIN 81 MG CHEWABLE TABLETS PO ONE (09:22)
[2024-03-05] MEDS: oxyCODONE HCL 5 MG TABLET PO PRN ×2 (10:15→13:11)
[2024-03-05 13:06] LABS: HEMOGLOBIN 16.4 G/dL (11.7-16.9); MCH 29.7 pg (25.7-33.7); MCHC 34.2 g/dl (32.0-35.9); MEAN CELL VOLUME 86.9 fl (80-96); MEAN PLT VOLUME 8.4 fl (7.5-11.1); PLATELET COUNT 177.4 10^3/uL (134-434); RBC 5.52 10^6/uL (4.00-5.60); WHITE BLOOD COUNT 16.6 10^3/uL (4.0-10.8)
[2024-03-05 13:15] LABS: ALBUMIN 4.2 g/dl (3.4-5.0); BILIRUBIN,TOTAL 0.8 mg/dl (0.2-1); CALCIUM 9.6 mg/dl (8.5-10.1); CREATININE 1.3 mg/dl (0.6-1.3); POTASSIUM 3.9 mmol/L (3.5-5.1); TOT PROT 6.7 g/dl (6.4-8.2)
[2024-03-05 13:18] LABS: PLATELET ESTIMATE ADEQUATE
[2024-03-06 08:14] LABS: HEMATOCRIT 45.2 % (35.4-49); HEMOGLOBIN 15.1 G/dL (11.7-16.9); MCH 29.2 pg (25.7-33.7); MCHC 33.4 g/dl (32.0-35.9); MEAN CELL VOLUME 87.6 fl (80-96); MEAN PLT VOLUME 9.1 fl (7.5-11.1); PLATELET COUNT 159.5 10^3/uL (134-434); RBC 5.16 10^6/uL (4.00-5.60); RDW 14.3 % (11.9-15.9); WHITE BLOOD COUNT 10.5 10^3/uL (4.0-10.8)
[2024-03-06 08:42] LABS: ALBUMIN 3.7 g/dl (3.4-5.0); BILIRUBIN,TOTAL 0.6 mg/dl (0.2-1); CREATININE 1.3 mg/dl (0.6-1.3); POTASSIUM 3.8 mmol/L (3.5-5.1)
[2024-03-06] MEDS: LACTATED RINGERS SOLUTION 1,000 ML IV SCH (14:49)
[2024-03-06 14:50] VITALS: BP 128/98; PULSE 89; RESP 19; TEMP 98.2
== END 2024-03-06 15:52 | disposition home or self-care (01) ==
LOC: SUATTDRO 07:04 → FASUSAT 07:04 → FM/S 14:57 → FASUSAT 03-06 15:52
PROC: 0LB24ZZ Excision of Left Shoulder Tendon, Percutaneous Endoscopic Approach (ICD-10-PCS; principal; 2024-03-04 09:49)
DX: S46.012A Strain of muscle(s) and tendon(s) of the rotator cuff of left shoulder, initial encounter (principal); X58.XXXA Exposure to other specified factors, initial encounter; Y93.9 Activity, unspecified; Y92.9 Unspecified place or not applicable; I10 Essential (primary) hypertension; E78.5 Hyperlipidemia, unspecified; I48.0 Paroxysmal atrial fibrillation; K21.9 Gastro-esophageal reflux disease without esophagitis; K59.00 Constipation, unspecified; K50.90 Crohn's disease, unspecified, without complications
CPT/HCPCS: 36415; 71045-TC-FY; 80053; 84484; 85027; 93005; 94760; C1713; C1763; C1883; J0131